=== PATIENT | female | born 1980 | race Caucasian/White ===

== ENCOUNTER 2018-10-10 17:55 | Emergency (ER) | payer OTHER ==
[2018-10-10 18:23] VITALS: BP 152/83; PULSE 102; TEMP 99.4; BMI 33.3
--- NOTE | 2018-10-10 18:23 | PDOC ---
Rapid Medical Evaluation Time Seen by Provider: 10/10/18 18:17 Medical Evaluation: 10/10/18 18:18 I have performed a brief in-person evaluation of this patient. The patient presents with a chief complaint of:Low back pain x 4 days. Also reports nausea and dizziness. No abd pain, dysuria, hematuria, n/v/f/c Pertinent physical exam findings:meliza uncomfortable, currently sitting in W/C due to pain I have ordered the following:labs/ua The patient will proceed to the ED for further evaluation. Discharge Disposition - Diagnosis Low back pain Qualifiers: Chronicity: acute Back pain laterality: unspecified Sciatica presence: without sciatica Qualified Code(s): M54.5 - Low back pain - Referrals - Patient Instructions - Post Discharge Activity
[2018-10-10 19:07] LABS: EOS % 4.2 % (0-4.5); HEMATOCRIT 38.1 % (32.4-45.2); HEMOGLOBIN 12.6 GM/dL (10.7-15.3); LYMPH % 31.4 % (8-40); MCH 29.6 pg (25.7-33.7); MCHC 33.2 g/dl (32.0-36.0); MEAN CELL VOLUME 89.2 fl (80-96); MEAN PLT VOLUME 8.9 fl (7.5-11.1); MONO % 7.7 % (3.8-10.2); NEUT % 55.7 % (42.8-82.8); RBC 4.27 M/mm3 (3.60-5.2); WHITE BLOOD COUNT 9.2 K/mm3 (4.0-10.0)
[2018-10-10 19:42] LABS: ALBUMIN 4.1 g/dl (3.4-5.0); ALK PHOS 49 U/L (45-117); ANION GAP 6 MMOL/L (8-16); BILIRUBIN,TOTAL 0.5 mg/dL (0.2-1); BLOOD UREA NITROGEN 15 mg/dL (7-18); CALCIUM 9.7 mg/dL (8.5-10.1); CHLORIDE 107 mmol/L (98-107); CO2 28 mmol/L (21-32); CREATININE 1.1 mg/dL (0.55-1.3); GLUCOSE,RANDOM 99 mg/dL (74-106); LIPASE 139 U/L (73-393); SGOT/AST 17 U/L (15-37); SGPT/ALT 22 U/L (13-61); SODIUM 141 mmol/L (136-145); TOT PROT 7.3 g/dl (6.4-8.2)
--- NOTE | 2018-10-10 20:32 | PDOC ---
History of Present Illness - General Chief Complaint: Back Pain Stated Complaint: BACK PAIN Time Seen by Provider: 10/10/18 18:17 History Source: Patient Exam Limitations: No Limitations - History of Present Illness Initial Comments: 10/10/18 20:25 37 yo female no sig pmh presents to the ED for 3 days of right sided lower back pain. States the pain starts in the right lower back with radiation down the back of her right leg with associated leg pain described as numb and spasms. Pain is intermittent, made worse with walking and flexion/extension of the spine , Motrin attempted without relief. Denies trauma/inciting event, numbness/ tingling in the groin, weakness into the legs, incontinence or retention of urine or stool. Of note, pt had similar episode of pain 4 years ago with relief after 4 days of motrin and states the pain today is of the same quality however more intense today. Past History - Past Medical History Allergies/Adverse Reactions: Allergies Allergy/AdvReac Type Severity Reaction Status Date / Time No Known Allergies Allergy Verified 10/10/18 18:32 Home Medications: Ambulatory Orders Ibuprofen [Motrin -] 600 mg PO TID #21 tablet 10/10/18 Methocarbamol [Robaxin -] 500 mg PO TID #21 tablet 10/10/18 COPD: No Other medical history: CHRONIC BACK PAIN - Immunization History Immunization Up to Date: Yes - Suicide/Smoking/Psychosocial Hx Smoking History: Never smoked Hx Alcohol Use: No Drug/Substance Use Hx: No *Physical Exam - Vital Signs Last Vital Signs Temp Pulse Resp BP Pulse Ox 99.4 F 102 H 18 152/83 100 10/10/18 18:20 10/10/18 18:20 10/10/18 18:20 10/10/18 18:20 10/10/18 18:20 ED Treatment Course - LABORATORY CBC & Chemistry Diagram: 10/10/18 18:35 10/10/18 18:35 - ADDITIONAL ORDERS Additional order review: Laboratory Results 10/10/18 10/10/18 18:35 18:35 WBC 9.2 RBC 4.27 Hgb 12.6 Hct 38.1 MCV 89.2 MCH 29.6 MCHC 33.2 RDW 14.0 MPV 8.9 Absolute Neuts (auto) 5.1 Neutrophils % 55.7 Lymphocytes % 31.4 Monocytes % 7.7 Eosinophils % 4.2 Basophils % 1.0 Nucleated RBC % 0 Sodium 141 Potassium 4.0 Chloride 107 Carbon Dioxide 28 Anion Gap 6 L BUN 15 Creatinine 1.1 Creat Clearance w eGFR 55.59 Random Glucose 99 Calcium 9.7 Total Bilirubin 0.5 AST 17 ALT 22 Alkaline Phosphatase 49 Total Protein 7.3 Albumin 4.1 Lipase 139 10/10/18 18:35 RBC 4.27 MCV 89.2 MCHC 33.2 RDW 14.0 MPV 8.9 Neutrophils % 55.7 Lymphocytes % 31.4 Monocytes % 7.7 Eosinophils % 4.2 Basophils % 1.0 *DC/Admit/Observation/Transfer Diagnosis at time of Disposition: Low back pain Qualifiers: Chronicity: acute Back pain laterality: unspecified Sciatica presence: without sciatica Qualified Code(s): M54.5 - Low back pain - Discharge Dispostion Disposition: HOME Condition at time of disposition: Improved Decision to Admit order: No - Referrals Referrals: Santos Bermudez [Primary Care Provider] - - Patient Instructions Printed Discharge Instructions: DI for Back Pain With Sciatica Additional Instructions: Please see your primary Doctor within the next 48 hours. Take the medications sent to your Pharmacy as prescribed. Rest and ice your lower back for 20 min 4- 6 times per day. Return to the ER new or concerning symptoms including but not limited to: incontinence or retention of urine or stool, numbness in between your legs, weakness into your legs or high fevers. Thank you - Post Discharge Activity
[2018-10-10] MEDS ORDERED: KETOROLAC TROMETHAMINE 30 MG/1 ML VIAL IM ONE (20:33)
[2018-10-10] MEDS ORDERED: KETOROLAC TROMETHAMINE 30 MG/1 ML VIAL ONE (20:35)
[2018-10-10] MEDS ORDERED: METHOCARBAMOL 500 MG TABLET PO ONE (20:49)
[2018-10-10] MEDS ORDERED: METHOCARBAMOL 500 MG TABLET ONE (20:55)
[2018-10-10 21:45] LABS: PLATELET COUNT 360 K/MM3 (134-434); PLATELET ESTIMATE ADEQUATE
--- NOTE | 2018-10-11 00:14 | PDOC ---
Documentation entered by Marcio Cool SCRIBE, acting as scribe for Ariella Pérez MD. Ariella Pérez MD: This documentation has been prepared by the hille, Marcio Cool SCRIBE, under my direction and personally reviewed by me in its entirety. I confirm that the documentation accurately reflects all work, treatment, procedures, and medical decision making performed by me. Attending Attestation - Resident Resident Name: Kilo Li - ED Attending Attestation I have performed the following: I have examined & evaluated the patient, The case was reviewed & discussed with the resident, I agree w/resident's findings & plan - HPI HPI: 10/10/18 22:22 The patient is a 37 year old female with no significant past medical history who presents to the emergency department with right sided lower back pain for 3 days. The patient states that her back pain radiates down her leg. She reports associated intermittent numbness spasms with her pain. The patient states that she experienced a similar episode about 4 years ago and she used motrin for about 4 days resolving her symptoms. She states that she tried using motrin this time with no apparent relief. The patient denies any recent trauma, sensation change, or weakness. She denies any other complaints. - Physicial Exam PE: 10/11/18 03:20 Agree with resident exam. Pt has mild dextroscoliosis. - Medical Decision Making 10/11/18 03:[address] scan shows no nerve impingement. Pt is feeling better with analgesics and mm relaxants and she will be sent home with the same.
== END 2018-10-10 23:38 | disposition home or self-care (01) ==
LOC: JER 17:55
PROC: 3E0233Z Introduction of Anti-inflammatory into Muscle, Percutaneous Approach (ICD-10-PCS; principal; 2018-10-10)
DX: M54.5 Low back pain (principal)
CPT/HCPCS: 36415; 72100-TC-FY; 72131-TC; 80053; 83690; 84703; 85025; 87086; 96372; 99281-25